=== PATIENT | female | born 1985 | race Caucasian/White ===

== ENCOUNTER 2019-05-29 21:37 | Inpatient (IN) | payer OTHER ==
[2019-05-29] MEDS ORDERED: Buffered Lidocaine 1% SYRIN* 1 ML/SYRINGE INTRADERM ONE (22:05)
[2019-05-29] MEDS ORDERED: Lactated Ringers 1000 ML Bag* 1,000 ML IV ONE ×2 (22:05→23:33)
--- NOTE | 2019-05-29 22:15 | HP ---
General Information - Reason for Visit Spontaneous labor - General Information Maternal Age: 33 Grav: 1 Para: 0 SAB: 0 IEA: 0 Estimated Due Date: 05/23/19 Determined By: LMP Gestational Age in Weeks/Days: 40 6/7 Maternal Blood Type and Rh: A Positive - Results this Serology/RPR Result: Non-Reactive Rubella Result: Immune HBsAg Result: Negative HIV Result: Negative GBS Culture Result: Negative Past Medical History Delivery History: See Records Delivery History Comment: no prior deliveries Pertinent Past Medical History: See Records Past Medical History Comment: asthma, mild migraine without aura eczema back injury/pain - herniated disc abnormal moles Pertinent Past Surgical History: See Records Past Surgical History Comment: LEEP - 2007 Labiaplasty Pertinent Family History: See Records Family History Comment: Father: obesity, depression Mother: melanoma - Antepartal Records Antepartal Records: Reviewed, Complicated by: - age 33 at delivery, history of anxiety Review of Systems Constitutional: Uncomfortable CV Complaint: No Respiratory: Shortness of Breath: No Gastrointestinal: Normal Bowel Movement, Nausea, Vomiting Genitourinary: Leaking Fluid, No Dysuria, No Bleeding Musculoskeletal: No Epigastric Pain, Contractions Neurological: No Headache, No Visual Changes Movement: Normal Exam Allergies/Adverse Reactions: Allergies MS Sulfa Antibiotics [Sulfa Antibiotics] Allergy (Verified 05/29/19 21:57) Unknown Reaction Details B/P: 119/61, P: 90, R: 20, T: 98.1 - Measurements Height: 5 ft Weight: 156 lb Weight in lbs: [id number] Body Mass Index (BMI): 30.4 Pre- Weight: 126 lb Weight Gained This : 30 lbs and 0 ozs - Exam Breast: Breast Exam Deferred CVA: No CVA Tenderness Extremities: No Edema Heart: Normal Rhythm/Heart Sounds HEENT: No Significant Findings Lungs: Clear Bilaterally Reflexes: DTR 2+ Thyroid: No Thyromegaly - Abdominal Exam Abdomen Exam: Non-Tender, Fundal Height Consistent with Dates - Ultrasound/Biophysical Profile Ultrasound Status: Not Done Targeted Exam Findings See L&D Outpatient Visit Provider Note for Findings: N/A Estimated Weight: 7 lb by josue Cervical Exam: 2cm, 3cm Effacement: 90% Station: -1, 0 Presenting Part: Vertex Membrane Status: SROM Amniotic Fluid Evaluation: Clear Bleeding/Discharge: Bloody Show EFM Findings - External Monitor Findings Baseline Heart Rate: 135 External Monitor Findings: Accelerations Present, No Pattern of Variable or Late Decelerations, Variability Moderate, Baseline Stable Contractions: Regular, Moderate, 45-90 Seconds Contraction Frequency: 2-3.5 Assessment/Plan - Assessment A: IUP at 40 6/7 weeks Category I FHR Early labor Spontaneous rupture of membranes to clear fluid GBS negative P: Admit to inpatient Pt desires CEI eventually, will draw labs and initiate IV access Encouraged position changes, tub Reassess PRN Anticipate SVB - Plan Plan: Admit - Anticipate Vaginal Delivery - Date/Time of Admission Date of Admission: 05/29/19 Time of Admission: 22:00
[2019-05-29] MEDS ORDERED: OBEPIDURAL* 250 ML EPIDURAL ONE (22:38)
[2019-05-29 22:50] LABS: ABS Eosinophils 0.1 10^3/ul (0-0.6); ABS Lymphocytes 2.1 10^3/ul (1.0-4.8); ABS Monocytes 0.6 10^3/ul (0-0.8); ABS Neutrophils 12.7 10^3/ul (1.5-7.7); Eosinophil % 0.5 %; Hematocrit 38 % (35-47); Hemoglobin 13.4 g/dL (12.0-16.0); Lymphocyte % 13.3 %; Mean Corpuscular HGB Conc 35 g/dL (31-36); Mean Corpuscular Hemoglobin 32 pg (27-31); Mean Corpuscular Volume 91 fL (80-97); Mean Platelet Volume 7.8 fL (7.4-10.4); Platelet Count 212 10^3/uL (150-450); Red Blood Count 4.22 10^6 /uL (3.70-4.87); Red Cell Distribution Width 14 % (10-15); White Blood Count 15.4 10^3/uL (3.5-10.8)
[2019-05-29] MEDS ORDERED: Lactated Ringers 1000 ML Bag* 1,000 ML IV SCH ×2 (23:00→23:45)
[2019-05-29 23:02] LABS: Urine Benzodiazepine Screen None Detected (None Detect); Urine Opiates Screen None Detected (None Detect)
[2019-05-29] MEDS ORDERED: Sodium Citrate/Citric Acid* 15 ML UDC PO PRN (23:33)
[2019-05-29] MEDS ORDERED: Famotidine TAB* 20 MG PO PRN (23:33)
[2019-05-29] MEDS ORDERED: OBEPIDURAL* 250 ML EPIDURAL SCH (23:45)
--- NOTE | 2019-05-30 03:50 | PN ---
Progress Note - Progress Note Date of Service: 05/30/19 Note: S: Comfortable s/p CEI placement. Has had to push her button a few times, but reports feeling comfortable. Tired but too excited to nap O: B/P: 102/59, P: 75, R: 16, T: 99.4 FHR: baseline 165, moderate variability, +accelerations, occ early decel, occ variable decel UCs: q 2-5, moderate to palpation Clear fluid A: IUP at 41 0/7 weeks Category II FHR, doubt metabolic acidemia P: Encouraged rest, position changes To call if she feels increased pressure Reassess PRN Anticipate SVB
[2019-05-30] MEDS ORDERED: Witch Hazel PAD* JAR TOPICAL PRN (08:04)
[2019-05-30] MEDS ORDERED: Glycerin ADULT SUPP PR PRN (08:04)
[2019-05-30] MEDS ORDERED: Dibucaine 1% 28.35 GM TUBE PR PRN (08:04)
[2019-05-30] MEDS ORDERED: Acetaminophen TAB* 325 MG PO PRN (08:04)
--- NOTE | 2019-05-30 08:12 | PROCNOTE ---
[facility] OB: Delivery Note - Delivery A Date of : 05/30/19 Time of : 07:48 [place] Sex: Female Weight at : 5 lb 15.8 oz Score 1 Minute: 9 Score 5 Minutes: 9 Gestational Age in Weeks and Days at Delivery: 41 Weeks and 0 Days Delivery Method: Spontaneous Vaginal Labor: Spontaneous Did Patient attempt ?: N/A, No Previous Amniotic Fluid: Clear Anesthesia/Analgesia: CEI for Labor Anesthesia Comment: Dr. Parham Delivered By: Lila Morales - Nursery Level of Nursery: Regular/Bedside - Perineum Perineal Repair: by Tonya Bello CNM - Additional Delivery Notes Additional Delivery Notes: now 41 0/7 weeks experienced SROM to clear fluid at 2148, received CEI per request with good relief. Progressed to complete and complete, began pushing at 0727 with good maternal effort. Slow, controlled delivery of head SANGEETA with compound right hand at 0748. Shoulders followed easily with next push. Female delivered to maternal abdomen, vigorous with spontaneous cry and HR > 110. Apgars 9 and 9. Cord was doubly clamped and cut by infants father once pulsations ceased, at 5 minutes post-delivery. Spontaneous terence placenta at 0757, fundus firm with massage. Perineal laceration and right labial laceration noted, repaired by Tonya Bello CNM. EBL = 250 cc. to breastfeed. Mother and baby stable at time of note.
[2019-05-30] MEDS ORDERED: Simethicone TAB* 80 MG TAB.CHEW PO SCH (08:30)
[2019-05-30] MEDS: Ibuprofen TAB* 600 MG PO SCH ×3 (08:41→21:04)
[2019-05-30] MEDS ORDERED: Lactated Ringers 1000 ML Bag* 1,000 ML IV SCH (09:00)
[2019-05-30] MEDS ORDERED: Lidocaine 1% INJ* 10 MG/ML 30 ML SDV ONE (13:16)
[2019-05-30] MEDS: Docusate CAP* 100 MG PO SCH ×3 (15:06→21:03)
[2019-05-31] MEDS: Ibuprofen TAB* 600 MG PO SCH ×3 (04:21→15:00)
[2019-05-31 07:59] LABS: ABS Eosinophils 0.2 10^3/ul (0-0.6); ABS Lymphocytes 2.5 10^3/ul (1.0-4.8); ABS Monocytes 0.7 10^3/ul (0-0.8); ABS Neutrophils 15.1 10^3/ul (1.5-7.7); Eosinophil % 0.9 %; Hematocrit 31 % (35-47); Hemoglobin 10.7 g/dL (12.0-16.0); Lymphocyte % 13.3 %; Mean Corpuscular HGB Conc 34 g/dL (31-36); Mean Corpuscular Hemoglobin 32 pg (27-31); Mean Corpuscular Volume 93 fL (80-97); Mean Platelet Volume 7.1 fL (7.4-10.4); Platelet Count 172 10^3/uL (150-450); Red Blood Count 3.38 10^6 /uL (3.70-4.87); Red Cell Distribution Width 15 % (10-15); White Blood Count 18.5 10^3/uL (3.5-10.8)
[2019-05-31] MEDS ORDERED: Ferrous Gluconate TAB* 324 MG TAB PO SCH (09:00)
[2019-05-31] MEDS: Docusate CAP* 100 MG PO SCH ×3 (09:00→20:24)
[2019-06-01 07:38] VITALS: BP 107/65
[2019-06-01] MEDS: Docusate CAP* 100 MG PO SCH (08:30)
[2019-06-01] MEDS: Ibuprofen TAB* 600 MG PO SCH (08:30)
== END 2019-06-01 11:57 | disposition home or self-care (01) | DRG 807 ==
LOC: MCHOBOUT 21:37 → MCHOB 22:07
PROVIDERS: ADMIT Midwife; ATTEND Midwife
PROC: 10E0XZZ Delivery of Products of Conception, External Approach (ICD-10-PCS; principal; 2019-05-30)
PROC: 0KQM0ZZ Repair Perineum Muscle, Open Approach (ICD-10-PCS; 2019-05-30)
PROC: 0UQMXZZ Repair Vulva, External Approach (ICD-10-PCS; 2019-05-30)
PROC: 4A1HXCZ Monitoring of Products of Conception, Cardiac Rate, External Approach (ICD-10-PCS; 2019-05-30)
DX: O48.0 Post-term pregnancy (principal); Z37.0 Single live birth; O99.72 Diseases of the skin and subcutaneous tissue complicating childbirth; O32.6XX0 Maternal care for compound presentation, not applicable or unspecified; L30.9 Dermatitis, unspecified; O70.1 Second degree perineal laceration during delivery; O76 Abnormality in fetal heart rate and rhythm complicating labor and delivery; Z3A.40 40 weeks gestation of pregnancy; Z88.1 Allergy status to other antibiotic agents; Z79.899 Other long term (current) drug therapy
CPT/HCPCS: 36415; 80307; 85025; 86850; 86900; 86901; A9270-GY; G0480